=== PATIENT | female | born 1995 ===

== ENCOUNTER 2022-08-31 15:24 | Outpatient (CLI) | payer OTHER | END 2022-08-31 17:47 | disposition home or self-care (01) | LOC: PRENATAL 15:24 | PROVIDERS: ATTEND Obstetrics & Gynecology Maternal & Fetal Medicine | DX: O35.9XX0 Maternal care for (suspected) fetal abnormality and damage, unspecified, not applicable or unspecified (principal); O35.3XX0 Maternal care for (suspected) damage to fetus from viral disease in mother, not applicable or unspecified; O99.210 Obesity complicating pregnancy, unspecified trimester; Z3A.26 26 weeks gestation of pregnancy ==

== ENCOUNTER 2022-09-06 12:46 | Outpatient (CLI) | payer OTHER ==
[2022-09-06] MEDS ORDERED: PRENATAL TABLE1 EAC6 PO (12:56)
== END 2022-09-06 12:52 | disposition home or self-care (01) ==
LOC: OBS/DEL 12:46
PROVIDERS: ATTEND Specialist
DX: O26.892 Other specified pregnancy related conditions, second trimester (principal); R42 Dizziness and giddiness; Z3A.26 26 weeks gestation of pregnancy; Z88.0 Allergy status to penicillin; W18.39XA Other fall on same level, initial encounter; Y93.89 Activity, other specified; Y92.091 Bathroom in other non-institutional residence as the place of occurrence of the external cause; Y99.8 Other external cause status

== ENCOUNTER 2022-10-16 12:56 | Outpatient (CLI) | payer OTHER ==
[~2022-10-16 12:56] MED LIST: PRENATAL TABLE1 EAC6 PO
== END 2022-10-16 14:25 | disposition home or self-care (01) ==
LOC: PRENATAL 12:56
PROVIDERS: ATTEND Obstetrics & Gynecology Maternal & Fetal Medicine
DX: O26.849 Uterine size-date discrepancy, unspecified trimester (principal); O36.8199 Decreased fetal movements, unspecified trimester, other fetus; O99.210 Obesity complicating pregnancy, unspecified trimester; Z3A.32 32 weeks gestation of pregnancy